=== PATIENT | female | born 1970 | race Caucasian/White ===

== ENCOUNTER 2021-05-27 12:13 | Outpatient (CLI) | payer OTHER, SELFPAY ==
[2021-05-27 13:23] LABS: Basophils Absolute Auto 0.1 K/mm3 (0.0-0.1); Basophils Percent Auto 1.5 % (0.2-1.2); Eosinophils Absolute Auto 0.2 K/mm3 (0-0.3); Eosinophils Percent Auto 3.2 % (0-4.4); Hematocrit 42.5 % (37.0-47.0); Hemoglobin 13.2 g/dL (12.0-15.0); Immature Granulocyte Absolute 0.01 K/mm3 (0.00-0.031); Immature Granulocyte Percent A 0.2 % (0-0.5); Lymphocytes Absolute Auto 1.44 K/mm3 (0.9-3.2); Lymphocytes Percent Auto 30.7 % (18.3-44.2); Mean Corpuscular HGB Conc 31.1 g/dl (32-36); Mean Corpuscular Hemoglobin 26.4 pg (26-34); Mean Platelet Volume 11.5 fl (7.4-10.4); Monocytes Absolute Auto 0.5 K/mm3 (0.1-0.6); Monocytes Percent Auto 10.7 % (2.6-8.5); Neutrophils Absolute Auto 2.5 K/mm3 (1.3-6.7); Neutrophils Percent Auto 53.7 % (45.5-73.1); Platelet Count Result 232 k/mm3 (150-375); Red Cell Distribution Width 16.6 % (11.5-14.5); White Blood Count 4.7 K/mm3 (4.5-10.0)
[2021-05-27 13:46] LABS: Alanine Aminotransferase 31 U/L (4-35); Albumin Level 4.2 g/dL (3.5-5.1); Alkaline Phosphatase 76 U/L (38-126); Anion Gap 8 mmol/L (8-16); Aspartate Amino Transferase 33 U/L (14-36); Bilirubin,Total 0.6 mg/dL (0.2-1.3); Blood Urea Nitrogen 15 mg/dL (7-17); Calcium 9.3 mg/dL (8.4-10.2); Carbon Dioxide 27 mmol/L (22-30); Chloride 103 mmol/L (98-107); Cholesterol 141 mg/dL (0-200); Estimated Glomerular Filt Rate > 60; Glucose 93 mg/dL (65-110); HDL Direct 42 mg/dL; Potassium 4.6 mmol/L (3.4-5.0); Sodium 138 mmol/L (137-145); Triglycerides 69 mg/dL (<150)
[2021-05-27 13:57] LABS: LDL Cholesterol Direct 77 mg/dL
[2021-05-27 14:28] LABS: Vitamin D 25 Hydroxy 21.7 ng/mL
== END 2021-05-27 12:14 | disposition home or self-care (01) ==
PROVIDERS: PCP Internal Medicine; Visit Provider Nurse Practitioner
DX: E55.9 Vitamin D deficiency, unspecified (principal); Z13.29 Encounter for screening for other suspected endocrine disorder; Z13.220 Encounter for screening for lipoid disorders
CPT/HCPCS: 36415; 80053; 80061; 82306; 85025

== ENCOUNTER 2021-07-04 08:56 | Outpatient (CLI) | payer OTHER, SELFPAY ==
--- NOTE | ~2021-07-04 | MM_ITS ---
EXAMINATION: MM screening gail BI w sammi HISTORY: Screening mammogram TECHNIQUE: Craniocaudal and mediolateral oblique 3-D tomosynthesis images were obtained and synthetic 2-D images were generated. CAD analysis was submitted and interpreted. COMPARISON: No prior mammogram is available for comparison at this institution. BREAST PARENCHYMAL COMPOSITION: The breasts are almost entirely fatty. FINDINGS: There is no evidence of suspicious mass, calcification, or architectural distortion to sugg est malignancy in either breast. IMPRESSION: 1. No mammographic evidence of malignancy. 2. Recommend routine screening mammography in one year. BI-RADS Category 1: Negative Reviewed, dictated and finalized at location A. [employer]
== END 2021-07-04 08:57 | disposition home or self-care (01) ==
LOC: ANHIMG 08:58
PROVIDERS: PCP Internal Medicine; Visit Provider Obstetrics & Gynecology Gynecology
DX: Z12.31 Encounter for screening mammogram for malignant neoplasm of breast (principal)
CPT/HCPCS: 77063; 77067

== ENCOUNTER 2021-08-06 00:15 | Day surgery (SDC) | payer OTHER, SELFPAY ==
[2021-06-18 14:31] VITALS: BMI 49.9
--- NOTE | 2021-07-23 13:48 | PC.NURSE ---
Pt denies any changes to medications or medical hx since last pre-assessment phone call. new date and time verified with pt. pt denies questions.
--- NOTE | 2021-08-05 18:39 | PM.HPGS ---
History of Present Illness History of Present Illness Consent: Risks, benefits, and alternatives have been discussed and questions answered. Patient agrees to proceed with procedure. Chief complaint: neoplasm screening Narrative: Mary Ann Núñez is a 50 year old female referred for colon cancer screening. She has a strong family history of polyps and colon cancer on her mother side Review of Systems Review of Systems: All systems reviewed & are unremarkable except as noted in HPI and below PMFSH Past Medical History Medical History Allergies Obesity Surgical History Surgical History H/O section (~2002) H/O section (~2007) H/O dilation and curettage H/O tubal ligation (~2007) Family History Family History Mother Diabetes mellitus Depression Anxiety Hepatitis C Liver failure Grandparent Alcoholism Diabetes mellitus Hypertension Anxiety Depression Heart disease Social History Social History Social History: Caffeine-Coffee/soda daily Smoking status: Former smoker Tobacco type: cigarettes Smoking end date: 06/13/97 Alcohol intake: current Alcohol use details: Occasionally Living arrangements: with family Spiritual care concerns: No Meds Home Medications and Allergies Home Medications Medication Instructions Recorded Confirmed Type cholecalciferol (vitamin D3) 50 2,000 unit PO DAILY cap 05/27/21 06/18/21 History mcg (2,000 unit) capsule uvmdgeoh-fbp-frif-vitamin K [Adult 1 tablet PO DAILY 06/18/21 06/18/21 History Multivitamin with Iron] Allergies Allergy/AdvReac Type Severity Reaction Status Date / Time No Known Allergies Allergy Unverified 08/06/21 08:17 Exam Resp: Auscultation: clear to auscultation bilaterally Cardio: Rate: regular rate Rhythm: regular rhythm GI: GI Palp: Yes Soft to palpation and No Tenderness to palpation present (GI) Assessment and Plan Assessment and plan (1) Screening for colon cancer: Code(s): Z12.11 - Encounter for screening for malignant neoplasm of colon Status: Acute Assessment and Plan: Colonoscopy with possible biopsy or polypectomy or cautery or injection of substances.
[2021-08-06 08:18] VITALS: BP 152/90; PULSE 81; RESP 18; TEMP 36.4; O2SAT 100
[2021-08-06] MEDS: LACTATED RINGERS 1,000 ML 150 ML IV CONT (08:36)
--- NOTE | 2021-08-06 08:52 | P.PNAN_ITS ---
Anes - Initial Pre Proc Eval Procedure: Operation Date: 08/06/21 09:30 Proposed Procedures p Screening Colonoscopy - Jose Juan Tejada MD Date/Time: 08/06/21 08:52 Surgeon: Jose Juan Tejada MD Pre Op Diagnosis: neoplasm screening Patient Data Age: 50 Gender: F Height: 1.63 m Weight: 119.2 kg Last Vital Signs Temp 36.4 C L 08/06/21 08:18 Pulse 81 08/06/21 08:18 Resp 18 08/06/21 08:18 BP 152/90 H 08/06/21 08:18 Pulse Ox 100 08/06/21 08:18 Allergies Allergy/AdvReac Type Severity Reaction Status Date / Time No Known Allergies Allergy Unverified 08/06/21 08:17 Home Medications Medication Instructions Recorded Confirmed Type cholecalciferol (vitamin D3) 50 2,000 unit PO DAILY cap 05/27/21 06/18/21 History mcg (2,000 unit) capsule jcndcuzq-nrq-qwtu-vitamin K [Adult 1 tablet PO DAILY 06/18/21 06/18/21 History Multivitamin with Iron] Patient hx anesthesia problems: none Family hx anesthesia problems: none Results Review: All pre-operative results and documents have been reviewed as part of the pre-operative evaluation. [facility] Past Medical History Medical History Allergies Obesity Surgical History Surgical History H/O section (~2002) H/O section (~2007) H/O dilation and curettage H/O tubal ligation (~2007) Family History Family History Mother Diabetes mellitus Depression Anxiety Hepatitis C Liver failure Grandparent Alcoholism Diabetes mellitus Hypertension Anxiety Depression Heart disease Social History Social History Social History: Caffeine-Coffee/soda daily Smoking status: Former smoker Tobacco type: cigarettes Smoking end date: 06/13/97 Alcohol intake: current Alcohol use details: Occasionally Living arrangements: with family Spiritual care concerns: No Anes - Eval Final PreProcedure Day of Procedure 08/06/21 08:52 Patient weight: morbidly obese Heart: regular rate and rhythm Lungs: clear to auscultation Airway: Mallampati scale class II Neurological: alert and oriented Last oral intake: >/= 8 hours ASA classification: III Emergent: no Anesthetic plan: proceed Anesthesia type and monitoring: general GIVS and standard monitoring Results Review: All pre-operative results and documents have been reviewed as part of the pre-operative evaluation. Informed Consent: The patient's anesthetic plan and its attendant risks and benefits were discussed with the patient/family/POA. Questions were solicited and answers provided to the satisfaction of the patient/family/POA.
[2021-08-06 09:50] VITALS: BP 112/63; PULSE 83; RESP 30; O2SAT 100
[2021-08-06 10:00] VITALS: BP 132/65; PULSE 70; RESP 30; O2SAT 100
[2021-08-06 10:10] VITALS: BP 132/85; PULSE 72; RESP 24; O2SAT 100
== END 2021-08-06 10:27 | disposition home or self-care (01) ==
PROVIDERS: PCP Internal Medicine; Visit Provider Internal Medicine Gastroenterology
PROC: 0DJD8ZZ Inspection of Lower Intestinal Tract, Via Natural or Artificial Opening Endoscopic (ICD-10-PCS; CPT 45378; principal; 2021-08-06 09:30)
DX: Z12.11 Encounter for screening for malignant neoplasm of colon (principal); Z80.0 Family history of malignant neoplasm of digestive organs; Z83.71 Family history of colonic polyps
CPT/HCPCS: 45378; J2704; J7120

== ENCOUNTER 2021-08-31 01:30 | Day surgery (SDC) | payer OTHER, SELFPAY ==
[2021-08-20 10:56] VITALS: BMI 44.6
--- NOTE | 2021-08-20 11:03 | PC.NURSE ---
Report to the Outpatient Waiting Room, entrance under the green pavilion located off [facility], at time 0800 on date 08/31/21. OR Time: 1000. - You and your visitor will be asked a series of questions to screen for COVID 19 for your protection. - A mask is required within the hospital. One visitor will be allowed to accompany the patient into the hospital. Patients visitor will be instructed to remain with patient at all times or leave the building. We will allow the visitor to come back to the postoperative area when patient is ready. Preoperative COVID Testing Requirements: No COVID Test needed if: (proof is required; if not received patient will have Rapid Test prior to entry) - Patient has received COVID Vaccine at least 14 days prior to procedure date or - Patient has positive COVID test result within last 90 days of surgery date. COVID Test needed if above criteria is not met Patients may have clear liquids (water, carbonated beverages, clear teas, apple juice) until 3 hours prior to surgery with a maximum of 20 ounces. - No food from midnight until time of surgery Take the following medications with a SIP of water the morning of surgery: NONE Medications to discontinue per physician: VITAMINS/SUPPLEMENTS Date to take last dose: 08/27/21 Please no make-up, nail azeri, hairspray, perfume, deodorant, or body powder the day of surgery. No jewelry (including any body piercings) or valuables the day of surgery, leave them at home. Please take a shower or bath the night before, or the morning of, surgery with an antibacterial soap. Wear comfortable, loose fitting clothing. - Jewelry must be removed prior to entering the operating room. Rings and piercings that are not removed may be cut off. - The hospital will not accept responsibility for valuables. - Please leave all valuables, including medications, at home the day of surgery. If you are going home after surgery, a licensed transport driver must drive you home. - NO public transportation without another adult. - We recommend that an adult stay with you for 24 hours following discharge. - We also recommend that you do not drive, make important decision, drink alcoholic beverages, or take any drugs that were not prescribed by your health care provider for at least 24 hours after your discharge time. Follow any additional instructions given to you from your surgeon. Telephone instructions given to MELVIN AHUMADA and asked if any additional questions and then verbalized understanding. Patient advised to call surgeon office or pre surgery nurse liaison [phone] if any additional questions.
--- NOTE | 2021-08-29 13:00 | WPDANESEPPF ---
Anes - Initial Pre Proc Eval Procedure: Operation Date: 08/31/21 10:00 Proposed Procedures p Hysteroscopy Dilation and Curettage, Endometrial Cervical Curettage - Ludivina Altamirano MD Date/Time: 08/29/21 13:00 Surgeon: Ludivina Altamirano MD Pre Op Diagnosis: menorrhagia Patient Data Age: 50 Gender: F Height: 1.63 m Weight: 117.93 kg Allergies Allergy/AdvReac Type Severity Reaction Status Date / Time No Known Allergies Allergy Unverified 08/31/21 08:39 Home Medications Medication Instructions Recorded Confirmed Type cholecalciferol (vitamin D3) 50 2,000 unit PO DAILY cap 05/27/21 08/31/21 History mcg (2,000 unit) capsule vlfjdiuj-xwx-wsvh-vitamin K 1 tablet PO DAILY 06/18/21 08/31/21 History Patient hx anesthesia problems: none Family hx anesthesia problems: none Results Review: All pre-operative results and documents have been reviewed as part of the pre-operative evaluation. [facility] Past Medical History Medical History (Updated 08/31/21 @ 07:38 by Ludivina Altamirano MD) Allergies Obesity Psoriasis Surgical History Surgical History (Updated 08/31/21 @ 07:37 by Ludivina Altamirano MD) H/O section (~2002) H/O section (~2007) H/O dilation and curettage 2004 for miscarriage H/O tubal ligation (~2007) Family History Family History Mother Diabetes mellitus Depression Anxiety Hepatitis C Liver failure Grandparent Alcoholism Diabetes mellitus Hypertension Anxiety Depression Heart disease Social History Social History Social History: Caffeine-Coffee/soda daily Smoking packs per day: 2 Smoking cigarettes per day: 40.0 Years smoked: 6 Smoking pack-years: 12.00 Smoking status: Former smoker Tobacco type: cigarettes Smoking end date: 06/13/97 Alcohol intake: current Alcohol use details: ONCE EVERY FEW MONTHS Substance use: never Substance use type: does not use Living arrangements: with family Spiritual care concerns: No Anes - Eval Final PreProcedure Day of Procedure 08/29/21 13:00 Patient weight: morbidly obese Heart: regular rate and rhythm Lungs: clear to auscultation and normal air movement Airway: Mallampati scale class II Neurological: alert and oriented Last oral intake: >/= 8 hours ASA classification: III Emergent: no Anesthetic plan: proceed Anesthesia type and monitoring: general GIVS and standard monitoring Results Review: All pre-operative results and documents have been reviewed as part of the pre-operative evaluation. Informed Consent: The patient's anesthetic plan and its attendant risks and benefits were discussed with the patient/family/POA. Questions were solicited and answers provided to the satisfaction of the patient/family/POA.
--- NOTE | 2021-08-31 07:34 | WPDHPUPDATE1 ---
History and Physical Update Update Date/Time: 08/31/21 07:34 History and Physical has been reviewed, including an updated exam of the patient. There are NO changes in the patient's condition. Risks, benefits, and alternatives have been discussed and questions answered. Patient agrees to proceed with procedure.
--- NOTE | 2021-08-31 07:35 | PM.HPGS ---
History of Present Illness History of Present Illness Consent: Risks, benefits, and alternatives have been discussed and questions answered. Patient agrees to proceed with procedure. Chief complaint: menorrhagia Narrative: Mary Ann Núñez is a 50 year old female with a recent change in her cycles. Patient has had an increase in flow and length cycle. It was recommended to proceed with hysteroscopy D&C. Risks of infection, bleeding, and perforation were reviewed. Possible pathology was also discussed. Patient voiced understanding and agrees to proceed. Review of Systems Constitutional: Constitutional: Reports fatigue Genitourinary: Genitourinary: Reports urinary incontinence Musculoskeletal: Musculoskeletal: Reports back pain and Reports arthralgias [facility] Past Medical History Medical History (Updated 08/31/21 @ 07:38 by Ludivina Altamirano MD) Allergies Obesity Psoriasis Surgical History Surgical History (Updated 08/31/21 @ 07:37 by Ludivina Altamirano MD) H/O section (~2002) H/O section (~2007) H/O dilation and curettage 2004 for miscarriage H/O tubal ligation (~2007) Family History Family History Mother Diabetes mellitus Depression Anxiety Hepatitis C Liver failure Grandparent Alcoholism Diabetes mellitus Hypertension Anxiety Depression Heart disease Social History Social History Social History: Caffeine-Coffee/soda daily Smoking packs per day: 2 Smoking cigarettes per day: 40.0 Years smoked: 6 Smoking pack-years: 12.00 Smoking status: Former smoker Tobacco type: cigarettes Smoking end date: 06/13/97 Alcohol intake: current Alcohol use details: ONCE EVERY FEW MONTHS Substance use: never Substance use type: does not use Living arrangements: with family Spiritual care concerns: No Meds Home Medications and Allergies Home Medications Medication Instructions Recorded Confirmed Type cholecalciferol (vitamin D3) 50 2,000 unit PO DAILY cap 05/27/21 08/20/21 History mcg (2,000 unit) capsule tmupscuj-okd-mvvr-vitamin K 1 tablet PO DAILY 06/18/21 08/20/21 History Allergies Allergy/AdvReac Type Severity Reaction Status Date / Time No Known Allergies Allergy Unverified 08/20/21 10:56 Exam Const: General: healthy appearing and alert Orientation/consciousness: patient oriented x3 Resp: Effort & Inspection: normal respiratory effort Auscultation: clear to auscultation bilaterally Cardio: Rate: regular rate Rhythm: regular rhythm GI: GI Palp: Yes Soft to palpation, No Tenderness to palpation present (GI) and No Palpable mass present : External Female Exam: normal external appearance Speculum Exam - Vagina: normal appearance of the vagina and normal vaginal discharge Speculum Exam - Cervix: normal appearance of the cervix Bimanual exam- vagina & uterus: uterine size normal and consistency normal Bimanual Exam- Adnexa, other: normal adnexae and No adnexal tenderness Neuro: General: patient oriented x3 Assessment and Plan Assessment and plan (1) Menorrhagia: Code(s): N92.0 - Excessive and frequent menstruation with regular cycle Status: Acute Assessment and Plan: Plan is to proceed with D&C hysteroscopy and endocervical curettings
[2021-08-31] MEDS: ACETAMINOPHEN 500 MG TABLET 1000 MG PO (08:24)
[2021-08-31] MEDS: LACTATED RINGERS 1,000 ML 30 ML IV CONT (08:30)
[2021-08-31 08:40] VITALS: BP 145/73; PULSE 72; RESP 16; TEMP 36.5; O2SAT 100
[2021-08-31] MEDS: KETOROLAC 30 MG/ML VIAL (*BKC) IV PUSH (10:07)
--- NOTE | 2021-08-31 10:12 | W.PM.PROC2 ---
Procedure Note - Detailed Date of Procedure 08/31/21 Pre-op Diagnosis menorrhagia Post-op Diagnosis Same Procedure Performed D&C hysteroscopy Surgeon Ludivina Altamirano MD Anesthesia MAC and Local Findings The uterus is anteverted and sounds to 9cm. The endometrium appears grossly. Description of Procedure The patient is taken to the operating room and placed under anesthesia in the dorsal lithotomy position. She was prepped and draped in the usual sterile fashion. Dexter speculum was placed in the vagina and the cervix grasped on the anterior lip with a tenaculum. The cervix is injected in each quadrant with lidocaine. Endocervical curettings were taken with the [employer] curette. The uterus is sounded to 9cm. The cervix is serially dilated with Hegar to an 8. The diagnostic hysteroscope was placed with no abnormalities noted it is immediately removed. Medium sharp curette is used to curette the endometrium until a good uterine cry was noted in all areas. A large amount of material was obtained. All instruments were then removed from the patient and she is awakened from anesthesia. She is taken to recovery in stable condition. Sponge, needle, and instrument counts are correct per the OR staff. Estimated Blood Loss 5 Drains No Packing No Pathology Yes (Endocervical curettings and endometrial curetting) Complications No immediate complications Condition Stable Disposition PACU
[2021-08-31 10:17] VITALS: BP 156/86; PULSE 66; RESP 16; O2SAT 100
[2021-08-31] MEDS: oxyCODONE HCL (*CRX) 5 MG TAB IR PO (10:45)
[2021-08-31 10:47] VITALS: BP 142/83; PULSE 60; RESP 16; O2SAT 100
[2021-08-31 11:17] VITALS: BP 145/77; PULSE 67; RESP 16; O2SAT 100
== END 2021-08-31 11:25 | disposition home or self-care (01) ==
PROVIDERS: PCP Internal Medicine; Visit Provider Obstetrics & Gynecology Gynecology
PROC: 0U5B8ZZ Destruction of Endometrium, Via Natural or Artificial Opening Endoscopic (ICD-10-PCS; CPT 58563; principal; 2021-08-31 10:00)
DX: N92.0 Excessive and frequent menstruation with regular cycle (principal); N84.0 Polyp of corpus uteri; L40.9 Psoriasis, unspecified; Z87.891 Personal history of nicotine dependence; E66.01 Morbid (severe) obesity due to excess calories; Z68.41 Body mass index [BMI] 40.0-44.9, adult
CPT/HCPCS: 58558; 88305; A9270; J1100; J1885; J2250; J2405; J2704; J3010; J7030; J7120

== ENCOUNTER 2021-11-30 01:19 | Day surgery (SDC) | payer OTHER, SELFPAY ==
[2021-11-19 15:15] VITALS: BMI 41.2
--- NOTE | 2021-11-19 15:19 | PC.NURSE ---
Report to the Outpatient Waiting Room, entrance under the green pavilion located off [facility], at time _0600_ on date _11-30-21_. OR Time: 0730_. - You and your visitor will be asked a series of questions to screen for COVID 19 for your protection. - Only one visitor is allowed at this time. - The patient visitor is requested to leave or wait in car when not with patient. - A mask is required within the hospital. Patients may have clear liquids (water, carbonated beverages, clear teas, apple juice) until 3 hours prior to surgery with a maximum of 20 ounces. - No food from midnight until time of surgery Take the following medications with a SIP of water the morning of surgery: None Medications to discontinue per physician Vitamins Date to take last jxbb___[id number]___ Please no make-up, nail new zealander, hairspray, perfume, deodorant, or body powder the day of surgery. No jewelry (including any body piercings) or valuables the day of surgery, leave them at home. Please take a shower or bath the night before, or the morning of, surgery with an antibacterial soap. Wear comfortable, loose fitting clothing. Children are encouraged to wear pajamas. - Jewelry must be removed prior to entering the operating room. Rings and piercings that are not removed may be cut off. - The hospital will not accept responsibility for valuables. - Please leave all valuables, including medications, at home the day of surgery. If you are going home after surgery, a licensed warehouse associate driver must drive you home. - NO public transportation without another adult. - We recommend that an adult stay with you for 24 hours following discharge. - We also recommend that you do not drive, make important decision, drink alcoholic beverages, or take any drugs that were not prescribed by your health care provider for at least 24 hours after your discharge time. Follow any additional instructions given to you from your surgeon. If you or anyone in your household have experienced Covid symptoms in the past week, please notify your surgeon or the nurse liaison at the phone number below for possible testing. Telephone instructions given to __Patient and asked if any additional questions and then verbalized understanding. Patient advised to call surgeon office or pre surgery nurse liaison [phone] if any additional questions.
[2021-11-30 06:19] VITALS: BMI 40.6
[2021-11-30 06:20] VITALS: BP 143/77; PULSE 80; RESP 18; TEMP 36.7; O2SAT 100
[2021-11-30] MEDS: ACETAMINOPHEN 500 MG TABLET 1000 MG PO (06:30)
--- NOTE | 2021-11-30 06:41 | P.PNAN_ITS ---
Anes - Initial Pre Proc Eval Procedure: Operation Date: 11/30/21 07:30 Proposed Procedures p Hysteroscopy, Maryann Endometrial Ablation - Ludivina Altamirano MD Date/Time: 11/30/21 06:41 Surgeon: Ludivina Altamirano MD Pre Op Diagnosis: menorrhaghia Patient Data Age: 51 Gender: F Height: 1.63 m Weight: 107.4 kg Last Vital Signs Temp 36.7 C 11/30/21 06:20 Pulse 80 11/30/21 06:20 Resp 18 11/30/21 06:20 BP 143/77 H 11/30/21 06:20 Pulse Ox 100 11/30/21 06:20 O2 Del Method Room Air 11/30/21 06:20 Allergies Allergy/AdvReac Type Severity Reaction Status Date / Time No Known Allergies Allergy Verified 11/30/21 06:17 Home Medications Medication Instructions Recorded Confirmed Type cholecalciferol (vitamin D3) 50 2,000 unit PO DAILY 05/27/21 11/30/21 History mcg (2,000 unit) capsule multivitamin y-qfuqksjp-srovble 1 tablet PO DAILY 06/18/21 11/30/21 History fumarate 18 mg-vitamin K 25 mcg tablet Patient hx anesthesia problems: none Family hx anesthesia problems: none Results Review: All pre-operative results and documents have been reviewed as part of the pre- operative evaluation. [facility] Past Medical History Medical History Allergies Obesity Psoriasis Surgical History Surgical History H/O section (~2002) H/O section (~2007) H/O dilation and curettage 2004 for miscarriage H/O tubal ligation (~2007) Family History Family History Mother Diabetes mellitus Depression Anxiety Hepatitis C Liver failure Grandparent Alcoholism Diabetes mellitus Hypertension Anxiety Depression Heart disease Social History Social History Social History: Caffeine-Coffee/soda daily Smoking packs per day: 1 Smoking cigarettes per day: 20.0 Years smoked: 6 Smoking pack-years: 6.00 Smoking status: Former smoker Tobacco type: cigarettes Smoking end date: 11/19/94 Alcohol intake: current Drinks per week: 2 Alcohol use details: ONCE EVERY FEW MONTHS Substance use: never Substance use type: does not use Living arrangements: with family Spiritual care concerns: No Anes - Eval Final PreProcedure Day of Procedure 11/30/21 06:41 Patient weight: morbidly obese Heart: regular rate and rhythm Lungs: clear to auscultation Airway: Mallampati scale class II Neurological: alert and oriented ASA classification: III Emergent: no Anesthetic plan: proceed Anesthesia type and monitoring: general GIVS and standard monitoring Results Review: All pre-operative results and documents have been reviewed as part of the pre- operative evaluation. Informed Consent: The patient's anesthetic plan and its attendant risks and benefits were discussed with the patient/family/POA. Questions were solicited and answers prov ided to the satisfaction of the patient/family/POA.
[2021-11-30] MEDS: LACTATED RINGERS 1,000 ML 30 ML IV CONT (06:43)
--- NOTE | 2021-11-30 07:18 | WPDHPUPDATE1 ---
History and Physical Update Update Date/Time: 11/30/21 07:18 History and Physical has been reviewed, including an updated exam of the patient. There are NO changes in the patient's condition. Risks, benefits, and alternatives have been discussed and questions answered. Patient agrees to proceed with procedure.
--- NOTE | 2021-11-30 07:18 | PM.HPGS ---
History of Present Illness History of Present Illness Consent: Risks, benefits, and alternatives have been discussed and questions answered. Patient agrees to proceed with procedure. Chief complaint: menorrhaghia Narrative: Mary Ann Núñez is a 51 year old female Menorrhagia. Patient had D&C hysteroscopy in August which revealed benign polyps. The options for further treatment of her cycles were reviewed. Patient has elected to proceed with Maryann endometrial ablation. Risks of infection, bleeding, perforation, and device failure were reviewed. Success was reviewed with the patient as well. Patient voices understanding and agrees to proceed. Review of Systems Review of Systems: not repeated day of surgery; patient states no changes in status PMFSH Past Medical History Medical History (Updated 11/30/21 @ 07:21 by Ludivina Altamirano MD) Allergies Obesity Psoriasis Status post hysteroscopy Surgical History Surgical History H/O section (~2002) H/O section (~2007) H/O dilation and curettage 2004 for miscarriage H/O tubal ligation (~2007) Family History Family History Mother Diabetes mellitus Depression Anxiety Hepatitis C Liver failure Grandparent Alcoholism Diabetes mellitus Hypertension Anxiety Depression Heart disease Social History Social History Social History: Caffeine-Coffee/soda daily Smoking packs per day: 1 Smoking cigarettes per day: 20.0 Years smoked: 6 Smoking pack-years: 6.00 Smoking status: Former smoker Tobacco type: cigarettes Smoking end date: 11/19/94 Alcohol intake: current Drinks per week: 2 Alcohol use details: ONCE EVERY FEW MONTHS Substance use: never Substance use type: does not use Living arrangements: with family Spiritual care concerns: No Meds Home Medications and Allergies Home Medications Medication Instructions Recorded Confirmed Type cholecalciferol (vitamin D3) 50 2,000 unit PO DAILY 05/27/21 11/30/21 History mcg (2,000 unit) capsule multivitamin [id number] 1 tablet PO DAILY 06/18/21 11/30/21 History fumarate 18 mg-vitamin K 25 mcg tablet Allergies Allergy/AdvReac Type Severity Reaction Status Date / Time No Known Allergies Allergy Verified 11/30/21 06:17 Vital Signs Vital Signs - 24 hr 11/30/21 06:20 Temperature 98.0 F Pulse Rate 80 Respiratory Rate 18 Blood Pressure 143/77 H Pulse Oximetry 100 Oxygen Delivery Room Air Exam Const: General: healthy appearing and alert Orientation/consciousness: patient oriented x3 GI: GI Palp: Yes Soft to palpation, No Tenderness to palpation present (GI) and No Palpable mass present : External Female Exam: normal external appearance Speculum Exam - Vagina: normal appearance of the vagina and normal vaginal discharge Speculum Exam - Cervix: normal appearance of the cervix Bimanual exam- vagina & uterus: uterine size normal and consistency normal Bimanual Exam- Adnexa, other: normal adnexae and No adnexal tenderness Neuro: General: patient oriented x3 Assessment and Plan Assessment and plan (1) Menorrhagia: Code(s): N92.0 - Excessive and frequent menstruation with regular cycle Status: Acute Assessment and Plan: plan is to proceed with Maryann endometrial ablation
[2021-11-30] MEDS: KETOROLAC 15 MG/ML VIAL (*BKC) IV PUSH (07:43)
--- NOTE | 2021-11-30 07:54 | P.OP_ITS ---
Procedure Note - Detailed Date of Procedure 11/30/21 Pre-op Diagnosis menorrhaghia Post-op Diagnosis Same Procedure Performed Maryann endometrial ablation Surgeon Ludivina Altamirano MD Anesthesia MAC and Local Findings Uterus sounds to 9cm and appears grossly normal Description of Procedure The patient is taken to the operating room and placed under anesthesia in the dorsal lithotomy position. She was prepped and draped in the usual sterile fashion. [place] speculum was placed in the vagina and the cervix was grasped on the anterior lip with a tenaculum. The cervix was then injected with 1% lidocaine in each quadrant. The uterus is sounded to 9cm. The cervix is serially dilated with Hegar to an 8. The diagnostic hysteroscope was placed with no abnormalities noted. The hysteroscope was removed and the Maryann device opened and placed. The length was set at 6cm. The cavity assessment passed on the 1st attempt. The treatment cycle lasted the full 2minutes. The device is removed and the hysteroscope replaced with good ablation effect noted. All instruments were then removed. Sponge, needle, and instrument counts are correct per the OR staff. Patient is awakened from anesthesia and taken to recovery in stable condition. Estimated Blood Loss 5 Drains No Packing No Pathology None sent Complications No immediate complications Condition Stable Disposition PACU
[2021-11-30 07:57] VITALS: BP 126/78; PULSE 80; RESP 16; O2SAT 97
[2021-11-30 08:15] VITALS: BP 126/72; PULSE 59; RESP 14; O2SAT 100
[2021-11-30] MEDS: ONDANSETRON INJ 4 MG/2 ML VIAL IV PUSH (08:34)
[2021-11-30 08:50] VITALS: BP 130/74; PULSE 49; RESP 14
== END 2021-11-30 08:58 | disposition home or self-care (01) ==
PROVIDERS: PCP Internal Medicine; Visit Provider Obstetrics & Gynecology Gynecology
PROC: 0U5B8ZZ Destruction of Endometrium, Via Natural or Artificial Opening Endoscopic (ICD-10-PCS; CPT 58563; principal; 2021-11-30 07:30)
DX: N92.0 Excessive and frequent menstruation with regular cycle (principal); Z87.891 Personal history of nicotine dependence; E66.01 Morbid (severe) obesity due to excess calories; Z68.41 Body mass index [BMI] 40.0-44.9, adult
CPT/HCPCS: 58563; A9270; J1100; J1885; J2250; J2405; J2704; J3010; J7030; J7120

== ENCOUNTER 2022-07-28 14:45 | Outpatient (CLI) | payer OTHER, SELFPAY ==
[2022-07-28 15:25] LABS: Basophils Absolute Auto 0.1 K/mm3 (0.0-0.1); Basophils Percent Auto 0.6 % (0.2-1.2); Eosinophils Absolute Auto 0.1 K/mm3 (0-0.3); Eosinophils Percent Auto 0.7 % (0-4.4); Hematocrit 44.3 % (37.0-47.0); Hemoglobin 14.4 g/dL (12.0-15.0); Immature Granulocyte Absolute 0.01 K/mm3 (0.00-0.031); Immature Granulocyte Percent A 0.1 % (0-0.5); Lymphocytes Percent Auto 23.3 % (18.3-44.2); Mean Corpuscular HGB Conc 32.5 g/dl (32-36); Mean Corpuscular Hemoglobin 28.8 pg (26-34); Mean Corpuscular Volume 88.6 fl (80-100); Mean Platelet Volume 10.6 fl (7.4-10.4); Monocytes Absolute Auto 0.6 K/mm3 (0.1-0.6); Monocytes Percent Auto 6.9 % (2.6-8.5); Neutrophils Absolute Auto 5.9 K/mm3 (1.3-6.7); Neutrophils Percent Auto 68.4 % (45.5-73.1); Platelet Count Result 290 k/mm3 (150-375); Red Cell Distribution Width 14.3 % (11.5-14.5); White Blood Count 8.6 K/mm3 (4.5-10.0)
[2022-07-28 15:37] LABS: Alanine Aminotransferase 19 U/L (6-35); Albumin Level 4.4 g/dL (3.5-5.1); Alkaline Phosphatase 77 U/L (38-126); Anion Gap 6 mmol/L (8-16); Aspartate Amino Transferase 23 U/L (14-36); Bilirubin,Total 0.9 mg/dL (0.2-1.3); Blood Urea Nitrogen 16 mg/dL (7-17); Calcium 8.5 mg/dL (8.4-10.2); Carbon Dioxide 27 mmol/L (22-30); Chloride 103 mmol/L (98-107); Cholesterol 175 mg/dL (0-200); Estimated Glomerular Filt Rate > 60; Glucose 99 mg/dL (65-110); HDL Direct 62 mg/dL; Potassium 4.4 mmol/L (3.4-5.0); Sodium 136 mmol/L (137-145); Triglycerides 95 mg/dL (<150)
[2022-07-28 15:48] LABS: LDL Cholesterol Direct 81 mg/dL
[2022-07-28 16:13] LABS: Vitamin D 25 Hydroxy 32.7 ng/mL
== END 2022-07-28 14:46 | disposition home or self-care (01) ==
LOC: ANHLAB 14:47
PROVIDERS: PCP Internal Medicine; Visit Provider Nurse Practitioner
DX: E55.9 Vitamin D deficiency, unspecified (principal); Z13.220 Encounter for screening for lipoid disorders; Z13.29 Encounter for screening for other suspected endocrine disorder
CPT/HCPCS: 36415; 80053; 80061; 82306; 85025

== ENCOUNTER 2022-09-14 07:41 | Outpatient (CLI) | payer OTHER, SELFPAY ==
--- NOTE | ~2022-09-14 | MM_ITS ---
EXAMINATION: MM screening gail BI w sammi HISTORY: Screening mammogram TECHNIQUE: Craniocaudal and mediolateral oblique 3-D tomosynthesis images were obtained and synthetic 2-D images were generated. CAD analysis was submitted and interpreted. COMPARISON: 07/04/2021 bilateral screening mammogram BREAST PARENCHYMAL COMPOSITION: The breasts are almost entirely fatty. FINDINGS: There is no evidence of suspicious mass, calcification, or architectural distortion to sugg est malignancy in either breast. There has been no suspicious interval change. IMPRESSION: 1. No mammographic evidence of malignancy. 2. Recommend routine screening mammography in one year. BI-RADS Category 1: Negative Reviewed, dictated and finalized at location A.
== END 2022-09-14 07:42 | disposition home or self-care (01) ==
LOC: ANHIMG 07:42
PROVIDERS: PCP Internal Medicine; Visit Provider Obstetrics & Gynecology Gynecology
DX: Z12.31 Encounter for screening mammogram for malignant neoplasm of breast (principal)
CPT/HCPCS: 77063; 77067

== ENCOUNTER 2024-01-13 09:48 | Outpatient (CLI) | payer OTHER, SELFPAY ==
[2024-01-13 10:26] LABS: Basophils Absolute Auto 0.1 K/mm3 (0.0-0.1); Basophils Percent Auto 0.9 % (0.2-1.2); Eosinophils Absolute Auto 0.1 K/mm3 (0-0.3); Eosinophils Percent Auto 1.6 % (0-4.4); Hematocrit 43.2 % (37.0-47.0); Hemoglobin 14.1 g/dL (12.0-15.0); Immature Granulocyte Absolute 0.01 K/mm3 (0.00-0.031); Immature Granulocyte Percent A 0.2 % (0-0.5); Lymphocytes Absolute Auto 1.21 K/mm3 (0.9-3.2); Lymphocytes Percent Auto 20.9 % (18.3-44.2); Mean Corpuscular HGB Conc 32.6 g/dl (32-36); Mean Corpuscular Hemoglobin 30.2 pg (26-34); Mean Corpuscular Volume 92.5 fl (80-100); Mean Platelet Volume 10.8 fl (7.4-10.4); Monocytes Absolute Auto 0.5 K/mm3 (0.1-0.6); Monocytes Percent Auto 8.3 % (2.6-8.5); Neutrophils Percent Auto 68.1 % (45.5-73.1); Platelet Count Result 232 k/mm3 (150-375); Red Blood Count 4.67 M/mm3 (4.2-5.4); White Blood Count 5.8 K/mm3 (4.5-10.0)
[2024-01-13 10:44] LABS: Alanine Aminotransferase 16 U/L (6-35); Albumin Level 4.2 g/dL (3.5-5.1); Alkaline Phosphatase 82 U/L (38-126); Anion Gap 6 mmol/L (4-12); Aspartate Amino Transferase 27 U/L (14-36); Bilirubin,Total 0.6 mg/dL (0.2-1.3); Blood Urea Nitrogen 17 mg/dL (7-17); Calcium 8.5 mg/dL (8.4-10.2); Carbon Dioxide 24 mmol/L (22-30); Chloride 107 mmol/L (98-107); Cholesterol 178 mg/dL (0-200); Estimated Glomerular Filt Rate > 60; Glucose 99 mg/dL (65-110); HDL Direct 65 mg/dL; Potassium 4.1 mmol/L (3.4-5.0); Sodium 137 mmol/L (137-145); Triglycerides 54 mg/dL (<150)
[2024-01-13 10:56] LABS: LDL Cholesterol Direct 91 mg/dL
[2024-01-13 22:27] LABS: Vitamin D 25 Hydroxy 31.1 ng/mL
== END 2024-01-13 09:49 | disposition home or self-care (01) ==
LOC: ANHLAB 09:50
PROVIDERS: PCP Clinical Nurse Specialist; Visit Provider Clinical Nurse Specialist
DX: E55.9 Vitamin D deficiency, unspecified (principal); Z13.220 Encounter for screening for lipoid disorders; Z13.29 Encounter for screening for other suspected endocrine disorder
CPT/HCPCS: 36415; 80053; 80061; 82306; 85025

== ENCOUNTER 2024-07-13 08:01 | Outpatient (CLI) | payer OTHER, SELFPAY ==
--- NOTE | ~2024-07-13 | MM_ITS ---
EXAMINATION: MM screening gail BI w sammi HISTORY: Screening TECHNIQUE: Craniocaudal and mediolateral oblique 3-D tomosynthesis images were obtained and synthetic 2-D images were generated. CAD analysis was submitted and interpreted. COMPARISON: Comparison to multiple prior studies sequentially, with oldest reviewed study dated 07/04. BREAST PARENCHYMAL COMPOSITION: Not Dense: The breasts are almost entirely fatty. FINDINGS: There is no evidence of suspicious mass, calcification, or architectural distortion to sugg est malignancy in either breast. There has been no suspicious interval change. IMPRESSION: 1. No mammographic evidence of malignancy. 2. Recommend routine screening mammography in one year. BI-RADS Category 1: Negative Reviewed, dictated and finalized at location A. [id number]
--- OUTSIDE RECORDS SUMMARY | 2024-07-13 08:12 | XMS_ITS | Encounter Summary ---
Author Organization [facility] Address [address] [place] [address] Care Team Providers Care Reed Cleaner Name Role Phone Unavailable Primary Care Provider Unavailabl e Encounter Details Date Type Department Care Team (Latest Contact Info) Description 08/20/2007 Outpatient Historical [facility] Conversion, History Other Specified Complication, Antepartum Social History Tobacco Use Types Packs/Day Years Used Date Smoking Tobacco: Never Assessed Comments Unknown Sex and Gender Information Value Date Recorded Sex Assigned at Not on file Legal Sex Female 5:31 AM JEWELRY MAKER Gender Identity Not on file Sexual Orientation Not on file documented as of this encounter Plan of Treatment Not on file documented as of this encounter Procedures Procedure Name Priority Date/Time Associated Diagnosis Comments US OB LTD 1 OR MORE FETUSES Timed Study 09/14/2007 12:49 PM CDT documented in this encounter Results * US OB LTD 1 OR MORE FETUSES (09/14/2007 12:49 PM CDT) Anatomical Region Laterality Modality Pelvis Other Narrative 09/14/2007 12:49 PM CDT Results in [employer] Procedure Note 12/19/2008 Results in [employer] Jimenez Mercado MD US ORDERABLES Final Result documented in this encounter Visit Diagnoses Diagnosis Other specified complication, antepartum(646.83) Other specified complication, antepartum documented in this encounter
--- OUTSIDE RECORDS SUMMARY | 2024-07-13 08:12 | XMS_ITS | Referral Summary ---
Author Organization [facility] Address [address] [place] [address] Care Team Providers Care Supervisor Floor Assembly Name Role Phone Rj Jeffrey DO Primary Care Provider [phone] [phone] Source Comments [facility],non-owned Affiliates and Associated Physician Practices is amultiple site organization consisting of ambulatory clinics and hospital sitesin [place], [place], [place] and [place]. This disclosure is being madepursuant to the Care Everywhere program and may not contain all information available regarding this patient. Last updated 18.[facility] Allergies No known active allergies Medications * Be aware that medications may not be up to date on this document. Alwaysverify current medications with the patient. Medication Sig Dispensed Refills Start Date End Date Status albuterol HFA (PROAIR HFA) 108 (90 BASE) MCG/ACT inhalerIndications:A cute bronchitis, unspecified organism Inhale 2 Puffs by mouth every 4 hours as needed for Shortness of Breath, Wheezing or Cough 1 Inhaler 1 03/23/2016 Active methylPREDNISolone (MEDROL DOSEPAK) 4 MG tabletIndications:Ac mauri bronchitis, unspecified organism 1 dose pack PO as directed on package 1 Each 06/20/2016 Active azithromycin (ZITHROMAX) 250 MG tabletIndications:Ot her specified symptoms and signs involving the circulatory and respiratory systems Take 2 tablets now, then 1 tablet daily for 4 days. 6 Tab 06/20/2016 Active albuterol HFA (PROAIR HFA) 108 (90 BASE) MCG/ACT inhalerIndications:A cute bronchitis, unspecified organism Inhale 2 Puffs by mouth every 4 hours as needed for Shortness of Breath, Wheezing or Cough 1 Inhaler 06/20/2016 Active Active Problems No known active problems Social History Tobacco Use Types Packs/Day Years Used Date Smoking Tobacco: Never Sex and Gender Information Value Date Recorded Sex Assigned at Not on file Gender Identity Not on file Sexual Orientation Not on file Last Filed Vital Signs Vital Sign Reading Time Taken Comments Blood Pressure 130/90 06/20/2016 11:24 AM STUDENT SERVICES ADVISOR Pulse 109 06/20/2016 11:24 AM STUDENT SERVICES ADVISOR Temperature 36.8 ??C (98.3 ??F) 06/20/2016 11:[address] Respiratory Rate 20 06/20/2016 11:24 AM STUDENT SERVICES ADVISOR Oxygen Saturation 97% 06/20/2016 11:24 AM STUDENT SERVICES ADVISOR Inhaled Oxygen Concentration - - Weight 154.2 kg (340 lb) 06/20/2016 11:24 AM STUDENT SERVICES ADVISOR Height 165.1 cm (5' 5 ) 06/20/2016 11:24 AM STUDENT SERVICES ADVISOR Body Mass Index 56.58 06/20/2016 11:24 AM STUDENT SERVICES ADVISOR Plan of Treatment Not on file Care Teams Supervisor Floor Assembly Relationship Specialty Start Date End Date Rj Jeffrey DO PCP - General 09/02/21
--- OUTSIDE RECORDS SUMMARY | 2024-07-13 08:12 | XMS_ITS | Clinical Summary ---
Author Organization [facility] Address [address] [place] [address] Care Team Providers Care Pharmaceutical Development Technician Name Role Phone Rj Jeffrey DO Primary Care Provider [phone] [phone] Source Comments [facility],non-owned Affiliates and Associated Physician Practices is amultiple site organization consisting of ambulatory clinics and hospital sitesin [place], [place], [place] and [place]. This disclosure is being madepursuant to the Care Everywhere program and may not contain all information available regarding this patient. Last updated 18.[facility] [employer] Allergies No known active allergies Medications * [...] Comments Blood Pressure 130/90 06/20/2016 11:24 AM BUSINESS CONSULTANT Pulse 109 06/20/2016 11:24 AM BUSINESS CONSULTANT Temperature 36.8 ??C (98.3 ??F) 06/20/2016 11:[address] Respiratory Rate 20 06/20/2016 11:24 AM BUSINESS CONSULTANT Oxygen Saturation 97% 06/20/2016 11:24 AM BUSINESS CONSULTANT Inhaled Oxygen Concentration - - Weight 154.2 kg (340 lb) 06/20/2016 11:24 AM BUSINESS CONSULTANT Height 165.1 cm (5' 5 ) 06/20/2016 11:24 AM BUSINESS CONSULTANT Body Mass Index 56.58 06/20/2016 11:24 AM BUSINESS CONSULTANT Plan of Treatment Health Maintenance Due Date Last Done Comments COLOGUARD (AGES 45-75) - COL ON CA SCREENING 1972 COLON MONITORING 1972 COLONOSCOPY - COLON CA SCREENING 1972 CT COLONOGRAPHY - COLON CA SCREENING 1972 Colorectal Cancer Screening 1972 FIT - COLON CA SCREENING 1972 FLEX SIG - COLON CA SCREENING 1972 LIPID TESTING 1972 MAMMOGRAM 1972 PAP SMEAR 1972 HIV SCREENING 10/17/1987 HEPATITIS C SCREENING 10/12/1990 DTAP/TDAP/TD VACCINES (1 - Tdap) 10/17/1991 HEPATITIS B VACCINE (1 of 3 - 19+ 3-dose series) 10/17/1991 PNEUMOCOCCAL VACCINE 50+ (1 of 1 - PCV) 2022 ZOSTER VACCINE (1 of 2) 2022 COVID-19 VACCINE (1 - 2023-2 5 season) 2024 INFLUENZA VACCINE (#1) 2024 DEPRESSION SCREENING 06/13/2024 HIB VACCINE Aged Out No longer eligi ble based on patient's age to complete this topic HPV VACCINE Aged Out No longer eligi ble based on patient's age to complete this topic MENINGOCOCCAL (Group B) VACCINE Aged Out No longer eligible based on patient's age to complete this topic MENINGOCOCCAL VACCINE Aged Out No babatunde elmer eligible based on patient's age to complete this topic PNEUMOCOCCAL VACCINE Aged Out No long er eligible based on patient's age to complete this topic Care Teams Pharmaceutical Development Technician Relationship Specialty Start Date End Date Rj Jeffrey DO PCP - General 09/02/21
--- OUTSIDE RECORDS SUMMARY | 2024-07-13 08:12 | XMS_ITS | Encounter Summary ---
Author Organization [facility] Address [address] [place] [address] Care Team Providers Care Pharmaceutical Scientist Name Role Phone Unavailable Primary Care Provider Unavailabl e Encounter Details Date Type Department Care Team (Late st Contact Info) Description 09/15/2007 Outpatient Historical [facility] Conversion, History Social History Tobacco Use Types Packs/Day Years Used Date Smoking Tobacco: Never Assessed Comments Unknown Sex and Gender Information Value Date Recorded Sex Assigned at Not on file Legal Sex Female 5:31 AM OFFICE CLEANER Gender Identity Not on file Sexual Orientation Not on file documented as of this encounter Plan of Treatment Not on file documented as of this encounter Visit Diagnoses Not on filedocumented in this encounter
--- OUTSIDE RECORDS SUMMARY | 2024-07-13 08:12 | XMS_ITS | Patient Health Summary ---
Author Organization [facility] Address [address] [place] [address] Care Team Providers Care Drum Plater Name Role Phone Rj Jeffrey DO Primary Care Provider [phone] Note from [facility],non-owned Affiliates and Associated Physician Practices is amultiple site organization consisting of ambulatory clinics and hospital sitesin [place], [place], [place] and [place]. This disclosure is being madepursuant to the Care Everywhere program and may not contain all information available regarding this patient. Last updated 18.[facility] Allergies No known active allergies Medications * Be aware that medications may not be up to date on this document. Alwaysverify current medications with the patient. * albuterol HFA (PROAIR HFA) 108 (90 BASE) MCG/ACT inhaler(Started 03/23/2016) Inhale 2 Puffs by mouth every 4 hours as needed for Shortness of Breath, Wheezing or Cough 1 refill left * methylPREDNISolone (MEDROL DOSEPAK) 4 MG tablet(Started 06/20/2016) 1 dose pack PO as directed on package * azithromycin (ZITHROMAX) 250 MG tablet(Started 06/20/2016) Take 2 tablets now, then 1 tablet daily for 4 days. * albuterol HFA (PROAIR HFA) 108 (90 BASE) MCG/ACT inhaler(Started 06/20/2016) Inhale 2 Puffs by mouth every 4 hours as needed for Shortness of Breath, Wheezing or Cough Active Problems No known active problems Social History Tobacco Use Types Packs/Day Years Used Date Smoking Tobacco: Never Sex and Gender Information Value Date Recorded Sex Assigned at Not on file Gender Identity Not on file Sexual Orientation Not on file Last Filed Vital Signs Vital Sign Reading Time Taken Comments Blood Pressure 130/90 06/20/2016 11:24 AM PRE BILLING CLINICIAN Pulse 109 06/20/2016 11:24 AM PRE BILLING CLINICIAN Temperature 36.8 ??C (98.3 ??F) 06/20/2016 11:[address] Respiratory Rate 20 06/20/2016 11:24 AM PRE BILLING CLINICIAN Oxygen Saturation 97% 06/20/2016 11:24 AM PRE BILLING CLINICIAN Inhaled Oxygen Concentration - - Weight 154.2 kg (340 lb) 06/20/2016 11:24 AM PRE BILLING CLINICIAN Height 165.1 cm (5' 5 ) 06/20/2016 11:24 AM PRE BILLING CLINICIAN Body Mass Index 56.58 06/20/2016 11:24 AM PRE BILLING CLINICIAN Procedures * PULSE OXIMETRY - POINT OF CARE (AMB)(Performed 06/20/2016) Performed for Acute bronchitis, unspecified organism * STREP A SCREEN - POINT OF CARE (AMB) STL(Performed 02/25/2016) Performed for Pharyngitis, streptococcal, acute Results * PULSE OXIMETRY - POINT OF CARE (AMB) (06/20/2016) Pathologist [facility] Oximetry POCT 97% 0 - 100 % QC Verified Yes Yes Blood BLOOD SPECIMEN / Unknown 06/20/2016 Amanda Pulido [facility] - POINT OF C ARE ORDERABLES * (ABNORMAL) STREP A SCREEN - POINT OF CARE (AMB) STL (02/25/2016) [facility] Strep A Rapid POCT Positive(A) Negative Strep A Internal Control Present Lot # [id number] Expiration Date 09/18/2017 Throat swab (specimen) ENTIRE THROAT (SURFACE REGION OF NECK) / Unknown 02/25/2016 Amanda Pulido SPEED BELT [facility] - POINT OF C ARE ORDERABLES Care Teams Drum Plater Relationship Specialty Start Date End Date Rj Jeffrey DO PCP - General 09/02/21
--- OUTSIDE RECORDS SUMMARY | 2024-07-13 08:12 | XMS_ITS | Encounter Summary ---
Author Organization [facility] Address [address] [place] [address] Care Team Providers Care Cigar Bander Hand Name Role Phone Unavailable Primary Care Provider Unavailabl e Encounter Details Date Type Department Care Team (Late st Contact Info) Description 07/20/2007 Outpatient Historical [facility] Maternal and Ground [address] [place] [address] Real Beckham MD [address] [facility] [address] [place] [address] Social History Tobacco Use Types Packs/Day Years Used Date Smoking Tobacco: Never Assessed Comments Unknown Sex and Gender Information Value Date Recorded Sex Assigned at Not on file Legal Sex Female 5:31 AM FEATHER EDGER Gender Identity Not on file Sexual Orientation Not on file documented as of this encounter Plan of Treatment Not on file documented as of this encounter Visit Diagnoses Not on filedocumented in this encounter
--- OUTSIDE RECORDS SUMMARY | 2024-07-13 08:13 | XMS_ITS | Encounter Summary ---
Author Organization [facility] Address [address] [place] [address] Care Team Providers Care Renal Medicine Physician Name Role Phone Unavailable Primary Care Provider Unavailabl e Encounter Details Date Type Department Care Team (Latest Contact Info) Description 09/21/2007 Outpatient Historical [facility] Conversion, History Other Specified Complication, Antepartum Social History Tobacco Use Types Packs/Day Years Used Date Smoking Tobacco: Never Assessed Comments Unknown Sex and Gender Information Value Date Recorded Sex Assigned at Not on file Legal Sex Female 5:31 AM CLEARING TUB WORKER Gender Identity Not on file Sexual Orientation Not on file documented as of this encounter Plan of Treatment Not on file documented as of this encounter Visit Diagnoses Diagnosis Other specified complication, antepartum(646.83) Other specified complication, antepartum documented in this encounter
--- OUTSIDE RECORDS SUMMARY | 2024-07-13 08:13 | XMS_ITS | Encounter Summary ---
Author Organization [facility] Address [address] [place] [address] Care Team Providers Care Mail Rider Name Role Phone Unavailable Primary Care Provider Unavailabl e Encounter Details Date Type Department Care Team (Latest Contact Info) Description 07/19/2007 Outpatient Historical [facility] Conversion, History Other Specified Complication, Antepartum Social History Tobacco Use Types Packs/Day Years Used Date Smoking Tobacco: Never Assessed Comments Unknown Sex and Gender Information Value Date Recorded Sex Assigned at Not on file Legal Sex Female 5:31 AM CHRONOMETER TESTER Gender Identity Not on file Sexual Orientation Not on file documented as of this encounter Plan of Treatment Not on file documented as of this encounter Visit Diagnoses Diagnosis Other specified complication, antepartum(646.83) Other specified complication, antepartum documented in this encounter
--- OUTSIDE RECORDS SUMMARY | 2024-07-13 08:13 | XMS_ITS | Clinical Summary ---
Author Organization [facility] Address [address] [place] [id number] Care Team Providers Care Mechanic/Welder Name Role Phone Unavailable Primary Care Provider Unavailabl e Immunizations Immunization Administration Dates Next Due Covid-19 Vaccine, Vector-nr, [id number], Pf, 0.5 Ml ([facility]) 05/05/2021 Social History Tobacco Use Types Packs/Day Years Used Date Smoking Tobacco: Never Assessed Comments Unknown Sex and Gender Information Value Date Recorded Sex Assigned at Not on file Legal Sex Female 3:17 PM TREE DEADENER Gender Identity Not on file Sexual Orientation Not on file Plan of Treatment Health Maintenance Due Date Last Done Comments Hepatitis C Virus (HCV) Screening 1972 TdaP Immunization 1972 Hepatitis B Immunization (1 of 3 - 19+ 3-dose series) 10/17/1991 Pap Smear 1993 Cervical Cancer Screening (CCS) 2002 HPV/Cotest 2002 Colonoscopy 2017 Colorectal Cancer Screening 2017 Cologuard 2022 Immunochemical Fecal Occult Blood 2022 Mammogram 2022 Pneumococcal Immunization (5 0+ years) (1 of 1 - PCV) 2022 Zoster Immunization (1 of 2) 2022 Influenza Immunization (#1) 2024 11/0 09/2020, 05/02/2020 SARS-COV-2 Immunization ( - 2023- season) 2024 05/05/2021, 08/15/2020 Respiratory Syncytial Virus (RSV) Immunization (Adult) (1 - 1-dose 75+ series) 10/17/2047 Meningococcal Immunization (ACWY) Aged Out No longer eligible b ased on patient's age to complete this topic Pneumococcal Immunization Combined Aged Out No longer eligible b ased on patient's age to complete this topic Rotavirus Immunization Aged Out No lo nger eligible based on patient's age to complete this topic
--- OUTSIDE RECORDS SUMMARY | 2024-07-13 08:13 | XMS_ITS | Clinical Summary ---
Author Organization [facility] Address [address] [place] [phone] Phone Care Team Providers Care Saturation Equipment Operator Name Role Phone Unavailable Primary Care Provider Unavailabl e Social History Tobacco Use Types Packs/Day Years Used Date Smoking Tobacco: Never Assessed Comments Unknown Sex and Gender Information Value Date Recorded Sex Assigned at Not on file Legal Sex Female 5:31 AM CLEANING TECHNICIAN Gender Identity Not on file Sexual Orientation Not on file Plan of Treatment Health Maintenance Due Date Last Done Comments DTAP/TDAP/TD VACCINES (1 - Tdap) 10/17/1991 HEPATITIS B VACCINES (1 of 3 - 19+ 3-dose series) 10/17/1991 CERVICAL CANCER SCREENING 2002 BREAST CANCER SCREENING 2012 COLORECTAL SCREENING 2017 Colorectal Cancer Screening 2017 FIT-DNA Q 3 years 2017 FIT/FOBT Q 1 year 2017 Flex Sig/CT Colonography Q 5 years 2017 ZOSTER VACCINE (1 of 2) 2022 INFLUENZA VACCINE (#1) 2024 PNEUMOCOCCAL VACCINE 0-64 YEARS Aged Out No longer eligible based on patient's age to complete this topic Insurance [address] [address] PPO
== END 2024-07-13 08:02 | disposition home or self-care (01) ==
LOC: ANHIMG 08:04
PROVIDERS: PCP Clinical Nurse Specialist; Visit Provider Nurse Practitioner Women's Health
DX: Z12.2 Encounter for screening for malignant neoplasm of respiratory organs (principal)
CPT/HCPCS: 77063; 77067

== ENCOUNTER 2025-03-06 15:06 | Outpatient (CLI) | payer OTHER, SELFPAY ==
--- OUTSIDE RECORDS SUMMARY | 2025-03-06 15:12 | XMS_ITS | Clinical Summary ---
Author Organization [facility] Address [address] [place] [address] Care Team Providers Care Pot Runner Name Role Phone Rj Jeffrey DO Primary Care Provider [phone] Source Comments [facility],non-owned Affiliates and Associated Physician Practices is amultiple site organization consisting of ambulatory clinics and hospital sitesin [place], [place], [place] and [place]. This disclosure is being madepursuant to the Care Everywhere program and may not contain all information available regarding this patient. Last updated 18.[facility] [employer] Allergies No known active allergies Medications * Be aware that medications may not be up to date on this document. Alwaysverify current medications with the patient. albuterol HFA (PROAIR HFA) 108 (90 BASE) MCG/ACT inhalerIndicatio ns:Acute bronchitis, unspecified organism Inhale 2 Puffs by mouth every 4 hours as needed for Shortness of Breath, Wheezing or Cough 1 Inhaler 1 6 Active methylPREDNISolo ne (MEDROL DOSEPAK) 4 MG tabletIndication s:Acute bronchitis, unspecified organism 1 dose pack PO as directed on package 1 Each 7 Active azithromycin (ZITHROMAX) 250 MG tabletIndication s:Other specified symptoms and signs involving the circulatory and respiratory systems Take 2 tablets now, then 1 tablet daily for 4 days. 6 Tab 7 Active albuterol HFA (PROAIR HFA) 108 (90 BASE) MCG/ACT inhalerIndicatio ns:Acute bronchitis, unspecified organism Inhale 2 Puffs by mouth every 4 hours as needed for Shortness of Breath, Wheezing or Cough 1 Inhaler 7 Active Active Problems No known active problems Social History Tobacco Use Types Packs/Day Years Used Date Smoking Tobacco: Never Comments Unknown Sex and Gender Information Value Date Recorded Sex Assigned at Not on file Legal Sex Female 1:41 PM CDT Gender Identity Not on file Sexual Orientation Not on file Last Filed Vital Signs Vital Sign Reading Time Taken Comments Blood Pressure 130/90 06/20/2016 11: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 ALARM TECHNICIAN Pulse 109 06/20/2016 11:24 AM ALARM TECHNICIAN Temperature 36.8 C (98.3 F) 06/20/2016 11:24 AM ALARM TECHNICIAN Respiratory Rate 20 06/20/2016 11:24 AM ALARM TECHNICIAN Oxygen Saturation 97% 06/20/2016 11:24 AM ALARM TECHNICIAN Inhaled Oxygen Concentration - - Weight 154.2 kg (340 lb) 06/20/2016 11:24 AM ALARM TECHNICIAN Height 165.1 cm (5' 5) 06/20/2016 11:24 AM ALARM TECHNICIAN Body Mass Index 56.58 06/20/2016 11:24 AM ALARM TECHNICIAN Plan of Treatment Health Maintenance Due Date Last Done Comments COLOGUARD (AGES 45-75) - COL ON CA SCREENING 1972 COLON MONITORING 1972 COLONOSCOPY - COLON CA SCREENING 1972 CT COLONOGRAPHY - COLON CA SCREENING 1972 Colorectal Cancer Screening 1972 FIT - COLON CA SCREENING 1972 FLEX SIG - COLON CA SCREENING 1972 LIPID TESTING 1972 MAMMOGRAM 1972 HIV SCREENING 10/17/1987 HEPATITIS C SCREENING 10/12/1990 DTAP/TDAP/TD VACCINES (1 - Tdap) 10/17/1991 HEPATITIS B VACCINE (1 of 3 - 19+ 3-dose series) 10/17/1991 PNEUMOCOCCAL VACCINE 50+ (1 of 1 - PCV) 2022 ZOSTER VACCINE (1 of 2) 2022 DEPRESSION SCREENING 06/13/2024 COVID-19 VACCINE (1 - 2023-2 5 season) 2025 INFLUENZA VACCINE (#1) 2025 HIB VACCINE Aged Out No longer eligi ble based on patient's age to complete this topic HPV VACCINE Aged Out No longer eligi ble based on patient's age to complete this topic MENINGOCOCCAL (Group B) VACC INE SHARED DECISION-MAKING Aged Out No longer eligibl e based on patient's age to complete this topic MENINGOCOCCAL GROUPS A/C/Y/W VACCINE Aged Out No longer eligible b ased on patient's age to complete this topic Insurance [address] [id number] ANTHEM Care Teams Pot Runner Relationship Specialty Start Date End Date Rj Jeffrey DO PCP - General 09/02/21
--- OUTSIDE RECORDS SUMMARY | 2025-03-06 15:12 | XMS_ITS | Encounter Summary ---
Author Organization [facility] Address 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
--- OUTSIDE RECORDS SUMMARY | 2025-03-06 15:13 | XMS_ITS | Encounter Summary ---
Author Organization [facility] Address [address] [place] [address] Care Team Providers Care Accounting Office Manager Name Role Phone Unavailable Primary Care Provider Unavailabl e Encounter Details Date Type Department Care Team (Late st Contact Info) Description 07/20/2007 Outpatient Historical [facility] and [facility] [address] [place] [address] Real Beckham MD [address] [facility] [address] [place] [address] Social History Tobacco Use Types Packs/Day Years Used Date Smoking Tobacco: Never Assessed Comments Unknown Sex and Gender Information Value Date Recorded Sex Assigned at Not on file 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
--- OUTSIDE RECORDS SUMMARY | 2025-03-06 15:13 | XMS_ITS | Clinical Summary ---
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 Gender Identity Not on file Sexual Orientation Not on file Plan of Treatment Health Maintenance Due Date Last Done Comments DTAP/TDAP/TD VACCINES (1 - Tdap) 10/17/1991 HEPATITIS B VACCINES (1 of 3 - 19+ 3-dose series) 11/1991 HPV/Cotest (21-29) 1993 CERVICAL CANCER SCREENING 2002 HPV/Cotest (30-65) 2002 PAP SMEAR 2002 BREAST CANCER SCREENING 2012 COLORECTAL SCREENING 2017 Colorectal Cancer Screening 2017 FIT-DNA Q 3 years 2017 FIT/FOBT Q 1 year 2017 Flex Sig/CT Colonography Q 5 years 2017 ZOSTER VACCINE (1 of 2) 2022 INFLUENZA VACCINE (#1) 2025 Insurance [facility] PPO
--- OUTSIDE RECORDS SUMMARY | 2025-03-06 15:13 | XMS_ITS | Clinical Summary ---
Author Organization [facility] Address [address] [place] [phone] Care Team Providers Care Admission Nurse Coordinator Name Role Phone Unavailable Primary Care Provider Unavailabl e Immunizations Immunization Administration Dates Next Due Covid-19 Vaccine, Vector-nr, Rs-ad26, Pf, 0.5 Ml ([employer]) 05/05/2021 Social History Tobacco Use Types Packs/Day Years Used Date Smoking Tobacco: Never Assessed Comments Unknown Sex and Gender Information Value Date Recorded Sex Assigned at Not on file Legal Sex Female 3:17 PM RN GYNECOLOGY Gender Identity Not on file Sexual Orientation Not on file Plan of Treatment Health Maintenance Due Date Last Done Comments Hepatitis C Virus (HCV) Screening 1972 TdaP Immunization 1972 Hepatitis B Immunization (1 of 3 - 19+ 3-dose series) 10/17/1991 Pap Smear 1993 Cervical Cancer Screening (CCS) 2002 HPV/Cotest 2002 Cologuard 2017 Colonoscopy 2017 Colorectal Cancer Screening 2017 Immunochemical Fecal Occult Blood 2017 Pneumococcal Immunization (5 0+ years) (1 of 1 - PCV) 2022 Zoster Immunization (1 of 2) 2022 Influenza Immunization (#1) 2025 11/0 09/2020, 05/02/2020 SARS-COV-2 Immunization (3 - 2024- season) 2025 05/05/2021, 08/15/2020 Respiratory Syncytial Virus (RSV) Immunization (Adult) (1 - 1-dose 75+ series) 10/17/2047 Human Papillomavirus (HPV) Immunization Aged Out No longer eligible b ased on patient's age to complete this topic Meningococcal Immunization (ACWY) Aged Out No longer eligible b ased on patient's age to complete this topic Rotavirus Immunization Aged Out No lo nger eligible based on patient's age to complete this topic
--- OUTSIDE RECORDS SUMMARY | 2025-03-06 15:13 | XMS_ITS | Encounter Summary ---
Author Organization [facility] Address 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
--- OUTSIDE RECORDS SUMMARY | 2025-03-06 15:13 | XMS_ITS | Encounter Summary ---
Author Organization [facility] Address 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
--- OUTSIDE RECORDS SUMMARY | 2025-03-06 15:13 | XMS_ITS | Encounter Summary ---
Author Organization [facility] Address 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
[2025-03-06 15:40] LABS: Hemoglobin A1C 4.9 % (<5.7)
[2025-03-06 15:46] LABS: Alanine Aminotransferase 24 U/L (6-35); Albumin Level 4.3 g/dL (3.5-5.1); Alkaline Phosphatase 90 U/L (38-126); Anion Gap 5 mmol/L (4-12); Aspartate Amino Transferase 34 U/L (14-36); Bilirubin,Total 0.6 mg/dL (0.2-1.3); Blood Urea Nitrogen 14 mg/dL (7-17); Calcium 8.9 mg/dL (8.4-10.2); Carbon Dioxide 29 mmol/L (22-30); Chloride 103 mmol/L (98-107); Cholesterol 202 mg/dL (0-200); Estimated Glomerular Filt Rate > 60; Glucose 88 mg/dL (65-110); HDL Direct 61 mg/dL; Potassium 5.0 mmol/L (3.4-5.0); Sodium 137 mmol/L (137-145); Total Protein 7.2 g/dL (6.3-8.2); Triglycerides 109 mg/dL (<150)
[2025-03-06 15:50] LABS: Hematocrit 45.4 % (37.0-47.0); Hemoglobin 14.7 g/dL (12.0-15.0); Mean Corpuscular HGB Conc 32.4 g/dl (32-36); Mean Corpuscular Hemoglobin 29.2 pg (26-34); Mean Corpuscular Volume 90.3 fl (80-100); Platelet Count Result 283 k/mm3 (150-375); Red Blood Count 5.03 M/mm3 (4.2-5.4); White Blood Count 6.2 K/mm3 (4.5-10.0)
[2025-03-06 15:58] LABS: Free T4 Free Thyroxine 1.18 ng/dL (0.78-2.19)
[2025-03-06 16:12] LABS: Thyroid Stimulating Hormone Reflex 1.050 uIU/mL (0.465-4.68)
[2025-03-06 16:39] LABS: Vitamin B12 825.0 pg/mL (239-931)
== END 2025-03-06 15:07 | disposition home or self-care (01) ==
PROVIDERS: PCP Clinical Nurse Specialist
DX: Z01.419 Encounter for gynecological examination (general) (routine) without abnormal findings (principal)
CPT/HCPCS: 36415; 80053; 80061; 82306; 82607; 83036; 84439; 84443; 85027